=== PATIENT | female | born 1965 | race American Indian/Alaskan Native ===

== ENCOUNTER 2017-03-18 09:08 | Outpatient (CLI) | payer OTHER ==
--- NOTE | 2017-03-18 13:39 | Mammography Report ---
Bilateral digital screening mammogram with CAD. Comparison study is dated September 26, 2015. Findings: There is heterogeneous density of the fibroglandular tissue. In the central left breast, there is an ill-defined new parenchymal asymmetry. No architectural distortion or suspicious calcifications are seen. There is also a small central asymmetry in the right breast. Impression: Bilateral asymmetries. BI-RADS code: 0. Recommendation: Spot compression images, 90 degree views, and ultrasound if needed.
== END 2017-03-18 09:09 | disposition home or self-care (01) ==
LOC: EEVIPCON 09:08 → MAMMO 09:08
PROVIDERS: ATTEND Specialist
DX: Z12.31 Encounter for screening mammogram for malignant neoplasm of breast (principal)
CPT/HCPCS: 77067; G0202

== ENCOUNTER 2017-03-25 10:56 | Outpatient (CLI) | payer OTHER ==
--- NOTE | 2017-03-25 12:43 | Mammography Report ---
BILATERAL DIGITAL DIAGNOSTIC MAMMOGRAM and RIGHT BREAST ULTRASOUND: 03/25/17 10:56:00 CLINICAL: Recalled for bilateral asymmetries. COMPARISON:03/18/17 screening FINDINGS: Bilateral true lateral and spot compression views were performed. Satisfactory effacement of left asymmetry and partial effacement of a right central asymmetry. The lateral views are negative. Ultrasound of the right breast was performed and demonstrated an elongated cyst at 12 o'clock 6 cm from the nipple measuring 8 x 2 x 2 mm and a second benign cyst at 12 o'clock 6 cm from the nipple measuring 10 x 3 x 3 mm. No solid mass or shadowing. IMPRESSION: Small benign right breast cysts. Negative left breast. BI-RADS CATEGORY: 2 - - Benign RECOMMENDATION: Routine mammographic screening in one year. ACR BI-RADS MAMMOGRAPHIC CODES: 0 = Needs additional imaging evaluation; 1 = Negative; 2 = Benign; 3 = Probably benign; 4 = Suspicious; 5 = Malignant; 6 = Known biopsy-proven malignancy COMMENT: 1. Dense breast tissue, i.e., adenosis, fibrocystic changes, etc., may obscure an underlying neoplasm. 2. Approximately 10% of cancers are not detected with mammography. 3. A negative mammography report should not delay biopsy if a clinically suspicious mass is present. COMMENT: Patient follow-up letters are generated via our [facility] application.
== END 2017-03-25 10:57 | disposition home or self-care (01) ==
LOC: MAMMO 10:56
PROVIDERS: ATTEND Specialist
DX: N60.01 Solitary cyst of right breast (principal)
CPT/HCPCS: 76642; G0204; 77066

== ENCOUNTER 2018-05-19 09:06 | Outpatient (CLI) | payer OTHER ==
--- NOTE | 2018-05-21 08:41 | Mammography Report ---
BILATERAL DIGITAL SCREENING MAMMOGRAM with CAD: 05/19/18 09:06:00 CLINICAL: Routine screening. COMPARISON:03/25/17 FINDINGS: There are scattered areas of fibroglandular density. No mass, architectural distortion or suspicious calcifications. IMPRESSION: No mammographic evidence of malignancy. BI-RADS CATEGORY: 2 -- Benign RECOMMENDATION: Routine mammographic screening in one year. COMMENT: Patient follow-up letters are generated by our [employer] application.
== END 2018-05-19 09:07 | disposition home or self-care (01) ==
LOC: MAMMO 09:06
PROVIDERS: ATTEND Internal Medicine Critical Care Medicine
DX: Z12.31 Encounter for screening mammogram for malignant neoplasm of breast (principal); I10 Essential (primary) hypertension
CPT/HCPCS: 77067

== ENCOUNTER 2020-08-29 13:09 | Outpatient (CLI) | payer OTHER ==
--- NOTE | 2020-08-29 14:27 | Mammography Report ---
BILATERAL DIGITAL SCREENING MAMMOGRAM WITH CAD HISTORY: Screening mammogram. TECHNIQUE: Routine digital mammographic imaging performed. This examination was interpreted with mira pierre benefit of Computer-aided Detection analysis. COMPARISON: 05/19/2018, 03/25/2017, 03/18/2017, 09/26/2015. FINDINGS: Breast Density: scattered fibroglandular appearance of the breast tissue. Digital CC and MLO views demonstrate a focal asymmetry in the left slightly inferior central breast a s well as a left central breast asymmetry which is seen on the MLO view only. No suspicious findings within the right breast. IMPRESSION: Left slightly inferior central breast focal asymmetry and single view left central breast asymmetry. Additional mammographic views and possible ultrasound is recommended. BIRADS 0-Incomplete: Needs additional imaging evaluation NOTE: WE WILL RECALL THE PATIENT FOR THIS ADDITIONAL EVALUATION. FURTHER INFORMATION: According to the [employer], yearly mammograms are recommend ed starting at age 40 and continuing as long as a woman is in good health. Clinical Breast Exams shou ld be part of a periodic health exam-about every 3 years for women in their 20s and 30s and every yea r for women 40 and over. Breast self exam is an option for women starting in their 20s. Any breast ch maureen noted on a breast self exam should be reported promptly to the patient's healthcare provider. Br east MRI is recommended for women with an approximately 20-25% or greater lifetime risk of breast can cer, including women with a strong family history of breast or ovarian cancer and women who have been treated for Hodgkin's disease. A negative Mammography report should not discourage follow up or biopsy of a clinically significant f inding and/or abnormality. Dense breast tissue may obscure small neoplasms. The patient will be entered into a reminder system with a target due date for the next screening mamm ogram. Signer Name: Alonso Nevarez MD Signed: 08/29/2020 2:23 PM Workstation Name: [id number]
== END 2020-08-29 13:10 | disposition home or self-care (01) ==
LOC: MAMMO 13:09
PROVIDERS: ATTEND Specialist
DX: Z12.31 Encounter for screening mammogram for malignant neoplasm of breast (principal); N64.89 Other specified disorders of breast
CPT/HCPCS: 77067

== ENCOUNTER 2020-09-05 09:04 | Outpatient (CLI) | payer OTHER ==
--- NOTE | 2020-09-05 11:10 | Mammography Report ---
BILATERAL DIGITAL DIAGNOSTIC MAMMOGRAM WITH CAD CONVENTIONAL, 09/05/2020 LEFT LIMITED BREAST ULTRASOUND CLINICAL INFORMATION / INDICATION: Follow-up of left breast asymmetry seen on recent screening mammog parag. TECHNIQUE: Digital left mammographic imaging was performed. Spot compression views were obtained. Lamar ited ultrasound was performed. This examination was interpreted with the benefit of Computer-Aided De tection (CAD) analysis. COMPARISON: Screening mammograms from 08/29/2020 and 05/19/2018. Diagnostic bilateral mammogram from 03/2017. FINDINGS: Breast Density: There are scattered areas of fibroglandular density. MAMMOGRAPHIC FINDINGS: The previously described slightly inferior central focal asymmetry and central asymmetry are again seen on spot compression views without significant interval changes. No other si gnificant abnormality is identified. ULTRASOUND FINDINGS: Targeted ultrasound evaluation was performed of the area of interest. In the 6 :00 position is a lobulated complicated cyst measuring 4.7 x 3.1 x 3.5 mm that may correlate with the more central previously described asymmetry. No sonographic correlate with the more inferiorly locat ed left breast focal asymmetry is identified. No other significant abnormality is seen. IMPRESSION: Persistent nodularity in the left breast without a suspicious sonographic correlate is fa vored to be benign. Continued annual screening mammography is recommended. Follow up recommendation: Routine yearly BI-RADS Category 2: Benign. A "normal" or negative report should not discourage follow up or biopsy of a clinically significant f inding. A written summary of these findings will be mailed to the patient. The patient will be entered into a mammography reporting system which will generate a reminder letter for the patient's next appointmen t at the appropriate interval. According to the [employer], yearly mammograms are recommended starting at age 40 and continuing as long as a woman is in good health. Breast MRI is recommended for women with an teena roximately 20-25% or greater lifetime risk of breast cancer, including women with a strong family his tory of breast or ovarian cancer and women who have been treated for Hodgkin's disease. Signer Name: Adalberto Magaña MD Signed: 09/05/2020 11:06 AM Workstation Name: [id number]
== END 2020-09-05 09:05 | disposition home or self-care (01) ==
LOC: MAMMO 09:04
PROVIDERS: ATTEND Specialist
DX: N63.20 Unspecified lump in the left breast, unspecified quadrant (principal); N60.02 Solitary cyst of left breast